=== PATIENT | male | born 1960 | race Caucasian/White ===

== ENCOUNTER 2018-08-25 10:00 | Inpatient (IN) | payer OTHER ==
[2018-08-25 10:40] VITALS: BMI 30.5
--- NOTE | 2018-08-25 10:54 | HP ---
CIWA Score Nausea/Vomitin-Int. Nausea w/Dry Heave Muscle Tremors: 7-Severe,w/o Arm Extended Anxiety: 5 Agitation: 4-Moderately Restless Paroxysmal Sweats: 4-Forehead w/Sweat Beads Orientation: 1-Uncertain about Date Tacttile Disturbances: 0-None Auditory Disturbances: 1-Very Mild Visual Disturbances: 2-Mild Sensitivity Headache: 0-None Present CIWA-Ar Total Score: 28 - Admission Criteria OASAS Guidelines: Admission for Medically Managed Detox: Requires at least one of the followin. CIWA greater than 12 2. Seizures within the past 24 hours 3. Delirium tremens within the past 24 hours 4. Hallucinations within the past 24 hours 5. Acute intervention needed for co occurring medical disorder 6. Acute intervention needed for co occurring psychiatric disorder 7. Severe withdrawal that cannot be handled at a lower level of care (continued vomiting, continued diarrhea, abnormal vital signs) requiring intravenous medication and/or fluids 8. Admission ROS [facility] Allergies/Adverse Reactions: Allergies Allergy/AdvReac Type Severity Reaction Status Date / Time No Known Allergies Allergy Verified 08/25/18 10:26 History of Present Illness: Search Terms: kapil pal, 1960 Search Date: 08/25/2018 10:48:19 AM The Drug Utilization Report below displays all of the controlled substance prescriptions, if any, that your patient has filled in the last twelve months. The information displayed on this report is compiled from pharmacy submissions to the Department, and accurately reflects the information as submitted by the pharmacies. This report was requested by: Nela Oro | Reference #: [id number] Others' Prescriptions Patient Name: Kapil Pal Date: 1960 Address: [address] [place] [address] Sex: Male Rx Written Rx Dispensed Drug Quantity Days Supply Prescriber Name 04/20/2018 08/11/2018 zolpidem tartrate 10 mg tablet 30 30 Tate Guillen MD 08/11/2018 08/11/2018 oxycodone-acetaminophen 10-325 mg tab 120 30 Tate Guillen MD 04/20/2018 07/14/2018 zolpidem tartrate 10 mg tablet 30 30 Tate Guillen MD 07/14/2018 07/14/2018 oxycodone-acetaminophen 10-325 mg tab 120 30 Tate Guillen MD 04/20/2018 06/15/2018 zolpidem tartrate 10 mg tablet 30 30 Tate Guillen MD 06/15/2018 06/15/2018 oxycodone-acetaminophen 10-325 mg tablet 120 30 Tate Guillen MD 05/19/2018 05/19/2018 oxycodone-acetaminophen 10-325 mg tab 120 30 Tate Guillen MD 04/20/2018 05/03/2018 zolpidem tartrate 10 mg tablet 30 30 Tate Guillen MD 04/20/2018 04/20/2018 oxycodone-acetaminophen 10-325 mg tab 120 30 Tate Guillen MD 04/20/2018 04/20/2018 zolpidem tartrate 10 mg tablet 30 30 Tate Guillen MD 11/25/2017 03/23/2018 zolpidem tartrate 10 mg tablet 30 30 Tate Guillen MD 03/23/2018 03/23/2018 oxycodone-acetaminophen 10-325 mg tab 120 30 Tate Guillen MD 11/25/2017 02/18/2018 zolpidem tartrate 10 mg tablet 30 30 Tate Guillen MD 02/18/2018 02/18/2018 oxycodone-acetaminophen 10-325 mg tab 120 30 Tate Guillen MD 11/25/2017 01/20/2018 zolpidem tartrate 10 mg tablet 30 30 Tate Guillen MD 01/20/2018 01/20/2018 oxycodone-acetaminophen 10-325 mg tab 120 30 Tate Guillen MD 11/25/2017 12/27/2017 zolpidem tartrate 10 mg tablet 30 30 Tate Guillen MD 12/24/2017 12/27/2017 oxycodone-acetaminophen 10-325 mg tab 120 30 Tate Guillen MD 06/18/2017 11/25/2017 zolpidem tartrate 10 mg tablet 30 30 Tate Guillen MD 11/25/2017 11/25/2017 oxycodone-acetaminophen 10-325 mg tab 120 30 Tate Guillen MD 06/18/2017 10/28/2017 zolpidem tartrate 10 mg tablet 30 30 Tate Guillen MD 10/28/2017 10/28/2017 oxycodone-acetaminophen 10-325 mg tab 120 30 Tate Guillen MD 10/01/2017 10/01/2017 oxycodone-acetaminophen 10-325 mg tab 120 30 Tate Guillen MD 06/18/2017 09/15/2017 zolpidem tartrate 10 mg tablet 30 30 Tate Guillen MD 09/02/2017 09/02/2017 oxycodone-acetaminophen 10-325 mg tab 120 30 Tate Guillen MD pt here requesting detox from etoh use , reports 2 pints/day since teens , latest use yesterday priro to hospitalization , went to [facility] for chest pain , d/c today , d/c paperwork available . Pt is poor historian 2/2 clinical condition , c/o feeling " not well " tobacco - denies PMHX : htn , chronic back pain , insomnia , scoliosis pshx : umbil hernia Psych hx : depression , h/o past suicide attempt . SHx : homeless , lives in [facility] , unemployed Exam Limitations: Clinical Condition, Intoxication - Ebola screening Have you traveled outside of the country in the last 21 days: No Have you had contact with anyone from an Ebola affected area: No Do you have a fever: No - Review of Systems Constitutional: See HPI EENT: reports: See HPI Respiratory: reports: No Symptoms reported Cardiac: reports: Chest Pain GI: reports: See HPI : reports: No Symptoms Reported Musculoskeletal: reports: Back Pain Integumentary: reports: No Symptoms Reported Neuro: reports: Tremors Endocrine: reports: No Symptoms Reported Psychiatric: reports: Orientated x3, Anxious Patient History - Smoking Cessation Smoking history: Never smoked - Substances abused Alcohol Substance route: Oral Frequency: Daily Amount used: 1-2 pints Age of first use: 18 Date of last use: 08/24/18 Admission Physical Exam BHS - Vital Signs Vital Signs: Vital Signs - 24 hr 08/25/18 10:26 Pulse Rate 115 H Respiratory 20 Rate Blood Pressure 111/69 - Physical General Appearance: Yes: Severe Distress, Alcohol on Breath, Intoxicated, Tremorous, Irritable, Sweating, Anxious HEENTM: Yes: EOMI, Hearing grossly Normal, Normocephalic, Normal Voice Respiratory: Yes: Chest Non-Tender, Lungs Clear, Normal Breath Sounds Neck: Yes: No masses,lesions,Nodules, Trachea in good position Cardiology: Yes: Regular Rhythm, Regular Rate, S1, S2, Tachycardia Abdominal: Yes: Non Tender, Soft, Protuberent Back: Yes: Normal Inspection Musculoskeletal: Yes: Other (unsteady gait) Extremities: Yes: Non-Tender, Tremors Neurological: Yes: Motor Strength 5/5, Disoriented Integumentary: Yes: Warm - Diagnostic (1) Alcohol intoxication Current Visit: Yes Status: Acute Qualifiers: Complication of substance-induced condition: uncomplicated Qualified Code(s ): F10.920 - Alcohol use, unspecified with intoxication, uncomplicated (2) Alcohol dependence Current Visit: Yes Status: Acute Qualifiers: Substance use status: in withdrawal Breathalyzer - Breathalyzer Breathalyzer: 0.058 Inpatient Rehab Admission - Rehab Decision to Admit Inpatient rehab admission?: No
[2018-08-25] MEDS ORDERED: hydrOXYzine HCL 25 MG TABLET (FP) PO PRN (10:56)
[2018-08-25] MEDS ORDERED: MAGNESIUM CITRATE 300 ML BOTTLE PO PRN (11:00)
[2018-08-25] MEDS ORDERED: MAG HYDROX/AL HYDROX/SIMETH 30 ML UNIT-DOSE CUP PO PRN (11:00)
[2018-08-25] MEDS ORDERED: METHOCARBAMOL 500 MG TABLET PO PRN (11:00)
[2018-08-25] MEDS ORDERED: PATIENT'S OWN MEDICATION (NON-FORMULARY) (Losartan/Hydrochlorothiazide [Losartan-Hctz 100- PO SCH (11:00)
[2018-08-25] MEDS ORDERED: MAGNESIUM HYDROX 2400MG/30ML ORAL SUSPENSION 30 ML CUP PO PRN (11:00)
[2018-08-25] MEDS ORDERED: MENTHOL/PHENOL 1 EACH UD MM PRN (11:00)
[2018-08-25] MEDS ORDERED: chlordiazePOXIDE HCL 25 MG CAPSULE PO PRN (11:00)
[2018-08-25] MEDS ORDERED: IBUPROFEN 400 MG TABLET (FP) PO PRN (11:00)
[2018-08-25] MEDS ORDERED: PROCHLORPERAZINE MALEATE 5 MG TABLET PO PRN (11:00)
[2018-08-25] MEDS ORDERED: ACETAMINOPHEN 325 MG TABLET (FP) PO PRN (11:00)
[2018-08-25] MEDS ORDERED: DICYCLOMINE HCL 10 MG CAPSULE PO PRN (11:00)
[2018-08-25] MEDS ORDERED: METOPROLOL TARTRATE 25 MG TABLET (FP) PO ONE (11:02)
[2018-08-25] MEDS ORDERED: chlordiazePOXIDE HCL 25 MG CAPSULE PO ONE (11:30)
[2018-08-25] MEDS: ASPIRIN 81 MG CHEWABLE TABLETS PO SCH (11:33)
[2018-08-25] MEDS: PANTOPRAZOLE 20 MG TABLET (FP) PO SCH (11:51)
[2018-08-25] MEDS: METOPROLOL TARTRATE 50 MG TABLET (FP) PO SCH ×2 (11:53→22:32)
[2018-08-25] MEDS: HYDROCHLOROTHIAZIDE 12.5 MG CAPSULE (FP) PO SCH (11:53)
[2018-08-25] MEDS: LOSARTAN POTASSIUM 50 MG TABLET (FP) PO SCH (12:51)
--- NOTE | 2018-08-25 14:50 | EKG ---
Test Reason : Blood Pressure : / mmHG Vent. Rate : 112 BPM Atrial Rate : 112 BPM P-R Int : 166 ms QRS Dur : 088 ms QT Int : 340 ms P-R-T Axes : 061 053 049 degrees QTc Int : 464 ms SINUS TACHYCARDIA WITH OCCASIONAL PREMATURE VENTRICULAR COMPLEXES NO PREVIOUS ECGS AVAILABLE Confirmed by ASHLEE CAMPBELL MD ([id number]) on 08/25/2018 2:49:51 PM Referred By: Confirmed By:ASHLEE CAMPBELL MD
[2018-08-25] MEDS ORDERED: BISMUTH SUBSALICYLATE 262 MG/15 ML BTL PO ONE (17:30)
[2018-08-25] MEDS: chlordiazePOXIDE HCL 25 MG CAPSULE PO SCH (22:30)
[2018-08-25] MEDS: THIAMINE HCL 100 MG TABLET (FP) PO SCH (22:32)
[2018-08-25] MEDS: ATORVASTATIN CA 10 MG TABLET (FP) PO SCH (22:32)
[2018-08-25] MEDS: MELATONIN 5 MG TABLETS PO PRN (22:33)
[2018-08-26] MEDS: chlordiazePOXIDE HCL 25 MG CAPSULE PO SCH ×4 (05:57→22:27)
[2018-08-26] MEDS: PRENATAL VITAMINS W/ FOLIC ACID TABLET (FP) PO SCH (10:14)
[2018-08-26] MEDS: ASPIRIN 81 MG CHEWABLE TABLETS PO SCH (10:14)
[2018-08-26] MEDS: LOSARTAN POTASSIUM 50 MG TABLET (FP) PO SCH (10:14)
[2018-08-26] MEDS: amLODIPine BESYLATE 10 MG TABLET (FP) PO SCH (10:15)
[2018-08-26] MEDS: HYDROCHLOROTHIAZIDE 12.5 MG CAPSULE (FP) PO SCH (10:15)
[2018-08-26] MEDS: METOPROLOL TARTRATE 50 MG TABLET (FP) PO SCH ×2 (10:15→22:23)
[2018-08-26] MEDS: PANTOPRAZOLE 20 MG TABLET (FP) PO SCH (10:15)
[2018-08-26 11:37] LABS: HEMATOCRIT 44.6 % (35.4-49); HEMOGLOBIN 15.1 GM/dL (11.7-16.9); MCHC 33.9 g/dl (32.0-35.9); MEAN CELL VOLUME 100.3 fl (80-96); MEAN PLT VOLUME 10.3 fl (7.5-11.1); PLATELET COUNT 178 K/MM3 (134-434); RBC 4.45 M/mm3 (4.00-5.60); RDW 13.3 % (11.9-15.9); WHITE BLOOD COUNT 5.5 K/mm3 (4.0-10.0)
[2018-08-26 11:51] LABS: ALBUMIN 3.7 g/dl (3.4-5.0); BILIRUBIN,TOTAL 1.5 mg/dL (0.2-1); CALCIUM 9.1 mg/dL (8.5-10.1); CREATININE 0.8 mg/dL (0.55-1.3); POTASSIUM 3.1 mmol/L (3.5-5.1); TOT PROT 7.2 g/dl (6.4-8.2)
--- NOTE | 2018-08-26 13:11 | CONSULT ---
[facility] Psychiatric Consult - Data Date of interview: 08/26/18 Admission source: [facility] Identifying data: First admission to [facility] for this 58 y/o English-born male self-referred for detoxification treatment (alcohol). Examined at [address] [place] [address]. Patient is , a father of one, homeless ([facility]), unemployed and supported on welfare. Substance Abuse History: Patient admits to a long-standing history of alcohol abuse (since adolescence). Consumes 2-3 pints of vodka daily. Mr Pal denies history of drug use. Medical History: Remarkable for scoliosis, chronic lumbar pain, hypertension and history of umbilical herniorraphy. Psychiatric History: No reported history of psychiatric hospitalizations. Patient indicates that he got referred (by psychiatrist at the [facility]) to a clinic in [place] for psychiatric OPD care. Name of clinic : not recalled. Mr Pal endorses the diagnosis of MDD. Medicated with Paxil 20 mg/day ( verified with [phone]-[email or web address] [facility]). No history of suicide attempts. Physical/Sexual Abuse/Trauma History: Traumatized by a divorce and estrangement from his daughter. Additional Comment: Toxicology is not available. Mental Status Exam - Mental Status Exam Alert and Oriented to: Time, Place, Person Cognitive Function: Good Patient Appearance: Well Groomed Mood: Anxious, Hopeful Affect: Appropriate, Normal Range Patient Behavior: Fatigued, Appropriate, Cooperative Speech Pattern: Clear (fluent in panamanian), Appropriate Voice Loudness: Normal Thought Process: Goal Oriented Thought Disorder: Not Present Hallucinations: Denies Suicidal Ideation: Denies Homicidal Ideation: Denies Insight/Judgement: Poor Sleep: Poorly, Difficulty falling asleep Appetite: Good Muscle strength/Tone: Normal Gait/Station: Normal Psychiatric Findings - Problem List ([place] 1, 2,3) (1) Alcohol dependence Current Visit: Yes Status: Chronic Qualifiers: Substance use status: in withdrawal (2) Alcohol-induced mood disorder Current Visit: Yes Status: Chronic (3) History of depression Current Visit: Yes Status: Chronic (4) Insomnia Current Visit: Yes Status: Chronic - Initial Treatment Plan Initial Treatment Plan: Psychoeducation. Sleep hygiene. Detoxification. AA meetings. Support. Resume paxil 20 mg po daily. Side effects/benefits discussed with patient. Mr Pal agrees to this plan of care. Verbal consent given to MD. Leon.
[2018-08-26] MEDS: ACETAMINOPHEN 325 MG TABLET (FP) PO PRN (14:20)
[2018-08-26] MEDS ORDERED: POTASSIUM CHLORIDE TABS 20 MEQ TABLET.ER (FP) PO ONE (15:35)
--- NOTE | 2018-08-26 15:36 | PN ---
[facility] CIWA - CIWA Score Nausea/Vomitin Muscle Tremors: 3 Anxiety: 2 Agitation: 0-Normal Activity Paroxysmal Sweats: 3 Orientation: 0-Oriented Tacttile Disturbances: 0-None Auditory Disturbances: 1-Very Mild Visual Disturbances: 2-Mild Sensitivity Headache: 0-None Present CIWA-Ar Total Score: 13 S Progress Note (SOAP) Subjective: Nausea, Diarrhea, Tremors, Sweating, Fatigue, Interrupted Sleep. Objective: PATIENT A & O X 3, OBSERVED AMBULATING ON UNIT UNASSISTED. IN NO ACUTE DISTRESS. 08/26/18 15:32 Vital Signs Temperature 97.6 F 08/26/18 10:27 Pulse Rate 78 08/26/18 10:27 Respiratory Rate 18 08/26/18 10:27 Blood Pressure 154/92 08/26/18 10:27 O2 Sat by Pulse Oximetry (%) Laboratory Tests 08/26/18 08/26/18 08/26/18 08:00 08:51 08:51 WBC 5.5 RBC 4.45 Hgb 15.1 Hct 44.6 MCV 100.3 H MCH 34.0 H MCHC 33.9 RDW 13.3 Plt Count 178 MPV 10.3 Sodium 137 Potassium 3.1 L Chloride 100 Carbon Dioxide 26 Anion Gap 11 BUN 11 Creatinine 0.8 Est GFR (CKD-EPI)AfAm 114.13 Est GFR (CKD-EPI)NonAf 98.47 Random Glucose 135 H Calcium 9.1 Total Bilirubin 1.5 H AST 28 ALT 39 Alkaline Phosphatase 85 Total Protein 7.2 Albumin 3.7 RPR Titer Nonreactive LABS NOTED. Assessment: 08/26/18 15:36 WITHDRAWAL SYMPTOMS. HYPERTENSION. HYPOKALEMIA. HYPERBILIRUBINEMIA. 08/26/18 15:41 Plan: CONTINUE DETOX. INCREASE DAILY PO FLUID INTAKE. K-DUR, 20 MEQ PO X 1 TODAY, THEN 20 MEQ PO BID STARTING TOMORROW. RE-CHECK K LEVEL ON 08/28/2018. SCHEDULED AM DOSES OF AMLODIPINE AND OF HCTZ HELD TODAY DUE TO FEELINGS OF LETHARGY FOR PATIENT. BP NOTED TO BE LOW IN AFTERNOON. WILL EVALUATE BP READINGS LATER TODAY AND TOMORROW PRIOR TO ADMINISTRATION OF SUBSEQUENT DOSES OF PRESCRIBED ANTI-HYPERTENSIVE MEDICATIONS.
[2018-08-26] MEDS: THIAMINE HCL 100 MG TABLET (FP) PO SCH (22:22)
[2018-08-26] MEDS: ATORVASTATIN CA 10 MG TABLET (FP) PO SCH (23:04)
[2018-08-27] MEDS: chlordiazePOXIDE HCL 25 MG CAPSULE PO SCH ×3 (05:29→17:57)
[2018-08-27] MEDS ORDERED: POTASSIUM CHLORIDE TABS 20 MEQ TABLET.ER (FP) PO SCH (10:00)
[2018-08-27] MEDS: ASPIRIN 81 MG CHEWABLE TABLETS PO SCH (10:29)
[2018-08-27] MEDS: PARoxetine HCL 20 MG TABLET (FP) PO SCH (10:29)
[2018-08-27] MEDS: PRENATAL VITAMINS W/ FOLIC ACID TABLET (FP) PO SCH (10:30)
[2018-08-27] MEDS: PANTOPRAZOLE 20 MG TABLET (FP) PO SCH (10:30)
[2018-08-27] MEDS: LOSARTAN POTASSIUM 50 MG TABLET (FP) PO SCH (10:30)
[2018-08-27] MEDS: METOPROLOL TARTRATE 50 MG TABLET (FP) PO SCH ×2 (10:30→22:34)
[2018-08-27] MEDS: HYDROCHLOROTHIAZIDE 12.5 MG CAPSULE (FP) PO SCH (10:30)
[2018-08-27] MEDS: amLODIPine BESYLATE 10 MG TABLET (FP) PO SCH (10:30)
--- NOTE | 2018-08-27 12:30 | PN ---
S CIWA - CIWA Score Nausea/Vomitin-Mild Nausea/No Vomiting Muscle Tremors: 2 Anxiety: 2 Agitation: 2 Paroxysmal Sweats: 1-Minimal Palms Moist Orientation: 0-Oriented Tacttile Disturbances: 0-None Auditory Disturbances: 0-None Visual Disturbances: 0-None Headache: 1-Very Mild CIWA-Ar Total Score: 9 S Progress Note (SOAP) Subjective: WHEELCHAIR IN ROOM SOCIAL WITH PEERS IN DAY ROOM LAST FILLED [address] [facility] ON 08/11/18 Objective: 08/27/18 12:30 Vital Signs Temperature 98.7 F 08/27/18 09:58 Pulse Rate 99 H 08/27/18 09:58 Respiratory Rate 18 08/27/18 09:58 Blood Pressure 104/65 08/27/18 09:58 O2 Sat by Pulse Oximetry (%) Laboratory Last Values WBC 5.5 K/mm3 (4.0-10.0) 08/26/18 08:51 RBC 4.45 M/mm3 (4.00-5.60) 08/26/18 08:51 Hgb 15.1 GM/dL (11.7-16.9) 08/26/18 08:51 Hct 44.6 % (35.4-49) 08/26/18 08:51 MCV 100.3 fl (80-96) H 08/26/18 08:51 MCH 34.0 pg (25.7-33.7) H 08/26/18 08:51 MCHC 33.9 g/dl (32.0-35.9) 08/26/18 08:51 RDW 13.3 % (11.9-15.9) 08/26/18 08:51 Plt Count 178 K/MM3 (134-434) 08/26/18 08:51 MPV 10.3 fl (7.5-11.1) 08/26/18 08:51 Sodium 137 mmol/L (136-145) 08/26/18 08:51 Potassium 3.1 mmol/L (3.5-5.1) L 08/26/18 08:51 Chloride 100 mmol/L (98-107) 08/26/18 08:51 Carbon Dioxide 26 mmol/L (21-32) 08/26/18 08:51 Anion Gap 11 MMOL/L (8-16) 08/26/18 08:51 BUN 11 mg/dL (7-18) 08/26/18 08:51 Creatinine 0.8 mg/dL (0.55-1.3) 08/26/18 08:51 Est GFR (CKD-EPI)AfAm 114.13 08/26/18 08:51 Est GFR (CKD-EPI)NonAf 98.47 08/26/18 08:51 Random Glucose 135 mg/dL (74-106) H 08/26/18 08:51 Calcium 9.1 mg/dL (8.5-10.1) 08/26/18 08:51 Total Bilirubin 1.5 mg/dL (0.2-1) H 08/26/18 08:51 AST 28 U/L (15-37) 08/26/18 08:51 ALT 39 U/L (13-61) 08/26/18 08:51 Alkaline Phosphatase 85 U/L (45-117) 08/26/18 08:51 Total Protein 7.2 g/dl (6.4-8.2) 08/26/18 08:51 Albumin 3.7 g/dl (3.4-5.0) 08/26/18 08:51 RPR Titer Nonreactive (NONREACTIVE) 08/26/18 08:00 LAB NOTED LOWk+ 08/27/18 12:38 RECEIVED ONE 20 MEQ DOSE TODAY ADDED 40 MEQ ONE DOSE TONIGHT REPEAT k+ Assessment: 08/27/18 12:39 WITHDRAWAL SX Plan: CONTINUE DETOX
[2018-08-27] MEDS ORDERED: BISMUTH SUBSALICYLATE 262 MG/15 ML BTL PO ONE (13:18)
[2018-08-27] MEDS ORDERED: POTASSIUM CHLORIDE ORAL LIQUID 20 MEQ/15 ML PO ONE (15:00)
[2018-08-27] MEDS ORDERED: chlordiazePOXIDE HCL 10 MG CAPSULE PO PRN (23:00)
[2018-08-27] MEDS: THIAMINE HCL 100 MG TABLET (FP) PO SCH (23:34)
[2018-08-27] MEDS: chlordiazePOXIDE HCL 10 MG CAPSULE PO SCH (23:35)
[2018-08-27] MEDS: ATORVASTATIN CA 10 MG TABLET (FP) PO SCH (23:38)
[2018-08-28] MEDS: chlordiazePOXIDE HCL 10 MG CAPSULE PO SCH ×3 (05:16→18:00)
[2018-08-28] MEDS: PRENATAL VITAMINS W/ FOLIC ACID TABLET (FP) PO SCH (10:52)
[2018-08-28] MEDS: ASPIRIN 81 MG CHEWABLE TABLETS PO SCH (10:52)
[2018-08-28] MEDS: HYDROCHLOROTHIAZIDE 12.5 MG CAPSULE (FP) PO SCH (10:52)
[2018-08-28] MEDS: LOSARTAN POTASSIUM 50 MG TABLET (FP) PO SCH (10:52)
[2018-08-28] MEDS: amLODIPine BESYLATE 10 MG TABLET (FP) PO SCH (10:52)
[2018-08-28] MEDS: PANTOPRAZOLE 20 MG TABLET (FP) PO SCH (10:52)
[2018-08-28] MEDS: METOPROLOL TARTRATE 50 MG TABLET (FP) PO SCH ×2 (10:52→22:20)
[2018-08-28] MEDS: PARoxetine HCL 20 MG TABLET (FP) PO SCH (10:52)
[2018-08-28] MEDS: ACETAMINOPHEN 325 MG TABLET (FP) PO PRN (11:32)
--- NOTE | 2018-08-28 14:04 | PN ---
S CIWA - CIWA Score Nausea/Vomitin-Mild Nausea/No Vomiting Muscle Tremors: 1-None Visible, but [place] Anxiety: 1-Mildly Anxious Agitation: 1-Slight > Activity Paroxysmal Sweats: 1-Minimal Palms Moist Orientation: 0-Oriented Tacttile Disturbances: 0-None Auditory Disturbances: 0-None Visual Disturbances: 0-None Headache: 0-None Present CIWA-Ar Total Score: 5 BHS Progress Note (SOAP) Subjective: feeling better discuss aftercare with staff patient is determine to remain sober Objective: 08/28/18 14:06 Vital Signs Temperature 97.8 F 08/28/18 13:36 Pulse Rate 78 08/28/18 13:36 Respiratory Rate 18 08/28/18 13:36 Blood Pressure 125/82 08/28/18 13:36 O2 Sat by Pulse Oximetry (%) Laboratory Last Values WBC 5.5 K/mm3 (4.0-10.0) 08/26/18 08:51 RBC 4.45 M/mm3 (4.00-5.60) 08/26/18 08:51 Hgb 15.1 GM/dL (11.7-16.9) 08/26/18 08:51 Hct 44.6 % (35.4-49) 08/26/18 08:51 MCV 100.3 fl (80-96) H 08/26/18 08:51 MCH 34.0 pg (25.7-33.7) H 08/26/18 08:51 MCHC 33.9 g/dl (32.0-35.9) 08/26/18 08:51 RDW 13.3 % (11.9-15.9) 08/26/18 08:51 Plt Count 178 K/MM3 (134-434) 08/26/18 08:51 MPV 10.3 fl (7.5-11.1) 08/26/18 08:51 Sodium 137 mmol/L (136-145) 08/26/18 08:51 Potassium 4.6 mmol/L (3.5-5.1) 08/28/18 07:45 Chloride 100 mmol/L (98-107) 08/26/18 08:51 Carbon Dioxide 26 mmol/L (21-32) 08/26/18 08:51 Anion Gap 11 MMOL/L (8-16) 08/26/18 08:51 BUN 11 mg/dL (7-18) 08/26/18 08:51 Creatinine 0.8 mg/dL (0.55-1.3) 08/26/18 08:51 Est GFR (CKD-EPI)AfAm 114.13 08/26/18 08:51 Est GFR (CKD-EPI)NonAf 98.47 08/26/18 08:51 Random Glucose 135 mg/dL (74-106) H 08/26/18 08:51 Calcium 9.1 mg/dL (8.5-10.1) 08/26/18 08:51 Total Bilirubin 1.5 mg/dL (0.2-1) H 08/26/18 08:51 AST 28 U/L (15-37) 08/26/18 08:51 ALT 39 U/L (13-61) 08/26/18 08:51 Alkaline Phosphatase 85 U/L (45-117) 08/26/18 08:51 Total Protein 7.2 g/dl (6.4-8.2) 08/26/18 08:51 Albumin 3.7 g/dl (3.4-5.0) 08/26/18 08:51 RPR Titer Nonreactive (NONREACTIVE) 08/26/18 08:00 lab noted Assessment: 08/28/18 14:06 withdrawal sx Plan: continue detox
[2018-08-28] MEDS: THIAMINE HCL 100 MG TABLET (FP) PO SCH (22:20)
[2018-08-28] MEDS: ATORVASTATIN CA 10 MG TABLET (FP) PO SCH (22:20)
[2018-08-28] MEDS: MELATONIN 5 MG TABLETS PO PRN (22:21)
[2018-08-28] MEDS ORDERED: chlordiazePOXIDE HCL 10 MG CAPSULE PO SCH (23:00)
[2018-08-29 09:07] VITALS: BP 132/67; PULSE 84; TEMP 96.6
--- NOTE | 2018-08-29 15:40 | DS ---
[facility] Detox Discharge Summary Admission Date: 08/25/18 Discharge Date: 08/29/18 - History Present History: Alcohol Dependence Additional Comments: 58 years old male admitted on 08/25/18 for alcohol withdrawal stabilization completed detox regimen aftercare [facility] Pertinent Past History: bring in medication list and lab report to aftercare appointment - Physical Exam Results Vital Signs: Vital Signs Temperature 96.6 F L 08/29/18 09:06 Pulse Rate 84 08/29/18 09:06 Respiratory Rate 18 08/29/18 09:06 Blood Pressure 132/67 08/29/18 09:06 O2 Sat by Pulse Oximetry (%) Pertinent Admission Physical Exam Findings: alcohol withdrawal sx Laboratory Last Values WBC 5.5 K/mm3 (4.0-10.0) 08/26/18 08:51 RBC 4.45 M/mm3 (4.00-5.60) 08/26/18 08:51 Hgb 15.1 GM/dL (11.7-16.9) 08/26/18 08:51 Hct 44.6 % (35.4-49) 08/26/18 08:51 MCV 100.3 fl (80-96) H 08/26/18 08:51 MCH 34.0 pg (25.7-33.7) H 08/26/18 08:51 MCHC 33.9 g/dl (32.0-35.9) 08/26/18 08:51 RDW 13.3 % (11.9-15.9) 08/26/18 08:51 Plt Count 178 K/MM3 (134-434) 08/26/18 08:51 MPV 10.3 fl (7.5-11.1) 08/26/18 08:51 Sodium 137 mmol/L (136-145) 08/26/18 08:51 Potassium 4.6 mmol/L (3.5-5.1) 08/28/18 07:45 Chloride 100 mmol/L (98-107) 08/26/18 08:51 Carbon Dioxide 26 mmol/L (21-32) 08/26/18 08:51 Anion Gap 11 MMOL/L (8-16) 08/26/18 08:51 BUN 11 mg/dL (7-18) 08/26/18 08:51 Creatinine 0.8 mg/dL (0.55-1.3) 08/26/18 08:51 Est GFR (CKD-EPI)AfAm 114.13 08/26/18 08:51 Est GFR (CKD-EPI)NonAf 98.47 08/26/18 08:51 Random Glucose 135 mg/dL (74-106) H 08/26/18 08:51 Calcium 9.1 mg/dL (8.5-10.1) 08/26/18 08:51 Total Bilirubin 1.5 mg/dL (0.2-1) H 08/26/18 08:51 AST 28 U/L (15-37) 08/26/18 08:51 ALT 39 U/L (13-61) 08/26/18 08:51 Alkaline Phosphatase 85 U/L (45-117) 08/26/18 08:51 Total Protein 7.2 g/dl (6.4-8.2) 08/26/18 08:51 Albumin 3.7 g/dl (3.4-5.0) 08/26/18 08:51 RPR Titer Nonreactive (NONREACTIVE) 08/26/18 08:00 lab noted - Treatment Hospital Course: Detox Protocol Followed, Detoxed Safely, Responded well, Discharged Condition Good, Rehab Referral Accepted Patient has Accepted a Rehab Referral to: [facility] - Medication Discharge Medications: Ambulatory Orders Aspirin [ASA -] 81 mg PO DAILY 08/25/18 Omeprazole 20 mg PO DAILY 08/25/18 Oxycodone HCl/Acetaminophen [Oxycodone-Acetaminophen 10-325] 1 each PO QID 08/25 Paroxetine HCl [Paxil Cr] 25 mg PO DAILY 08/25/18 Prednisone [Deltasone] 20 mg PO DAILY 08/25/18 hydrOXYzine HCL [Atarax -] 25 mg PO Q6H PRN 08/25/18 Amlodipine Besylate [Norvasc -] 10 mg PO DAILY #30 tablet 08/28/18 Atorvastatin Ca [Lipitor] 10 mg PO HS #1 tablet 08/28/18 Hydrochlorothiazide [Hctz -] 12.5 mg PO DAILY #14 cap 08/28/18 Losartan Potassium [Cozaar -] 100 mg PO DAILY #14 tablet 08/28/18 Losartan/Hydrochlorothiazide [Losartan-Hctz 100-12.5 mg Tab] 1 each PO DAILY # 30 tablet 08/28/18 Metoprolol Tartrate [Lopressor] 100 mg PO BID #60 tablet 08/28/18 - Diagnosis (1) Alcohol dependence with uncomplicated withdrawal Status: Acute (2) Substance induced mood disorder Status: Suspected (3) Hypertension Status: Chronic Qualifiers: Hypertension type: essential hypertension Qualified Code(s): I10 - Essential (primary) hypertension (4) Hyperlipidemia Status: Chronic Qualifiers: Hyperlipidemia type: moderate mixed hyperlipidemia not requiring statin therapy Qualified Code(s): E78.2 - Mixed hyperlipidemia - AMA Did Patient Leave Against Medical Advice: No
== END 2018-08-29 09:45 | disposition home or self-care (01) | DRG 775 ==
LOC: YASAS 10:00 → Y3N 11:14
PROVIDERS: ADMIT Surgery; ATTEND Surgery
PROC: HZ2ZZZZ Detoxification Services for Substance Abuse Treatment (ICD-10-PCS; principal; 2018-08-25)
DX: F10.230 Alcohol dependence with withdrawal, uncomplicated (principal); F10.24 Alcohol dependence with alcohol-induced mood disorder; F10.220 Alcohol dependence with intoxication, uncomplicated; F19.24 Other psychoactive substance dependence with psychoactive substance-induced mood disorder; I10 Essential (primary) hypertension; E78.5 Hyperlipidemia, unspecified; E87.6 Hypokalemia; E88.09 Other disorders of plasma-protein metabolism, not elsewhere classified; G47.00 Insomnia, unspecified; M54.5 Low back pain; G89.29 Other chronic pain; M41.9 Scoliosis, unspecified; R00.0 Tachycardia, unspecified; Z91.5 Personal history of self-harm
CPT/HCPCS: 36415; 71046-TC-FY; 80053; 84132; 85027; 86593; 93005; 93010